=== PATIENT | female | born 1940 | race Caucasian/White ===

== ENCOUNTER 2021-09-16 13:18 | Outpatient (CLI) | payer MEDICARE, OTHER | END 2021-09-16 13:19 | disposition home or self-care (01) | LOC: CSHMAMMO 13:18 | PROVIDERS: ATTEND Internal Medicine | DX: M81.0 Age-related osteoporosis without current pathological fracture (principal); M85.851 Other specified disorders of bone density and structure, right thigh | CPT/HCPCS: 77080 ==

== ENCOUNTER 2023-01-02 12:07 | Outpatient (CLI) | payer MEDICARE, BC | END 2023-01-02 12:08 | disposition home or self-care (01) | LOC: CSHRAD 12:07 | PROVIDERS: ATTEND Podiatrist | DX: S92.501D Displaced unspecified fracture of right lesser toe(s), subsequent encounter for fracture with routine healing (principal) ==

== ENCOUNTER 2023-12-17 10:13 | Outpatient (CLI) | payer OTHER | END 2023-12-17 10:14 | disposition home or self-care (01) | LOC: CSHMAMMO 10:13 | PROVIDERS: ATTEND Internal Medicine | DX: M81.0 Age-related osteoporosis without current pathological fracture (principal) | CPT/HCPCS: 77080 ==

== ENCOUNTER 2024-12-25 10:48 | Outpatient (CLI) | payer MEDICARE, BC | END 2024-12-25 10:49 | disposition home or self-care (01) | LOC: CSHMAMMO 10:48 | PROVIDERS: ATTEND Internal Medicine Endocrinology, Diabetes & Metabolism | DX: M81.8 Other osteoporosis without current pathological fracture (principal) | CPT/HCPCS: 77080 ==